=== PATIENT | male | born 1940 | race Caucasian/White ===

== ENCOUNTER 2017-02-28 04:49 | Inpatient (IN) | payer OTHER, MEDICARE ==
[~2017-02-28] VITALS: Ht 185.4 cm; Wt 88.0 kg
[~2017-02-28 04:49] MED LIST: ATORVASTATIN CA40 M1 PO; DILTIAZEM 24HR120 MG PO; ELIQUIS5 M1 PO; MULTAQ400 M1 PO; OMEPRAZOLE40 M1 PO; PROAIR HFA8.5 GM INH; SYMBICORT 16010.2 GM INH
[2017-02-28] MEDS ORDERED: CEPHALEXIN500 M3 PO (08:18)
--- NOTE | 2017-02-28 13:33 | Admission Core Measures ---
Admission Meds I reviewed the following Meds: Current Medications Sig/Skyler Start time Last Medication Dose Stop Time Status Admin Acetaminophen 975 MG ONCE 02/28 0000 AC (Tylenol) 02/28 235 Albuterol Sulfate 2 PUF Q4-6 PRN PRN 02/28 1330 AC (Ventolin) Atorvastatin Calcium 40 MG 1700 03/01 1700 AC (Lipitor) Budesonide/ 2 PUF BID 02/28 2200 AC Formoterol Fumarate (Symbicort) Cefazolin Sodium 2,000 MG ONCE 02/28 0000 NR (Kefzol-Ancef Inj) 02/28 235 Diltiazem HCl 120 MG DAILY 03/01 1000 AC (Cardizem CD) Dronedarone 400 MG BID 02/28 2200 AC (Multaq) Omeprazole 40 MG DAILY AC 03/01 0700 AC (Prilosec) Oxycodone HCl 10 MG ONCE 02/28 0000 AC (Roxicodone) 02/28 235 Acute Coronary Syndrome Inclusion Criteria ACS Diagnosis No Inpatient Core Measures LDL Reminder: If No, please order W/I first 24hr of stay Congestive Heart Failure Inclusion Criteria CHF Diagnosis No Cerebrovascular accident Inclusion Criteria CVA/TIA Diagnosis No Inpatient Core Measures Bedside Swallow Eval Reminder: If BSE failed, place ST order Antithrombotic Reminder: Order Antithrombotic Medication by end of day 2 Antithrombotic Reminder: Document Reason Antithrombotic Not ordered by end of day 2 AFIB/Flutter Reminder: If Present, add to problem list AFIB/Flutter Reminder: Order Anticoag Medication for pts with AFIB/Flutter Atherosclerosis Reminder: If Present, add to problem list LDL Reminder: If No, please order W/I first 24hr of stay PT Order Reminder: If No, please order Venous thromboembolism Inpatient Core Measures VTE Risk Factors: Age > 40, Previous VTE No [facility] VTE prophylaxis d/t No contraindications No VTE Pharm Prophylaxis d/t No contraindications Inclusion Criteria - Per Current guidelines, there needs to be overlap - treatment for the first 5 days of Warfarin therapy. - Parenteral Anticoagulation (IV or SC) needs to be - given along with Warfarin therapy. VTE Diagnosis No VTE Type NONE VTE Confirmed by (Test) NONE Problem List As ranked by this Provider includes Assessment & Plan 1. Unilateral primary osteoarthritis, left hip HOME MEDS Home Med List Albuterol Sulfate (Proair Hfa) 90 MCG HFA.AER.AD 2 PUF INH Q4-6 PRN PRN ASTHMA (Reported) Apixaban (Eliquis) 5 MG TABLET 1 TAB PO BID A FIB (Reported) Atorvastatin Calcium 40 MG TABLET 1 TAB PO DAILY CHOLESTEROL (Reported) Budesonide/Formoterol Fumarate (Symbicort 160-4.5 Mcg Inhaler) 160 MCG-4.5 MCG/ ACTUATION HFA.AER.AD 2 PUF INH BID ASTHMA (Reported) Cephalexin 500 MG CAPSULE 2 CAP PO BID UTI (Reported) Diltiazem HCl (Diltiazem 24HR ER) 120 MG CAP.ER.24H 1 CAP PO DAILY HTN ( Reported) Dronedarone HCl (Multaq) 400 MG TABLET 1 TAB PO BID A FIB (Reported) Omeprazole 40 MG CAPSULE.DR 1 CAP PO DAILY GERD (Reported)
[2017-02-28] MEDS ORDERED: COLACE100 M1 PO (13:36)
[2017-02-28] MEDS ORDERED: ELIQUIS2.5 M1 PO ×2 (13:36→13:53)
[2017-02-28] MEDS ORDERED: MS CONTIN30 M1 PO (13:36)
[2017-02-28] MEDS ORDERED: DILAUDID2 M1 PO (13:36)
[2017-02-28] MEDS ORDERED: MIRALAX17 G1 PO (13:36)
--- NOTE | 2017-02-28 13:42 | RADIOLOGY REPORT ---
EXAMINATION: XR HIP, LEFT CLINICAL INFORMATION: Status post left total hip are placement. COMPARISON: None TECHNIQUE: Two views of the left hip. FINDINGS: Prosthetic components of the left total hip arthroplasty are appropriately aligned. No periprosthetic fracture. Gas from recent surgery is present in the surrounding soft tissues. IMPRESSION: Normal postoperative appearance of the left total hip prosthesis.
--- NOTE | 2017-02-28 13:49 | Patient Discharge Instructions ---
Discharge Instructions General Discharge Information You were seen/treated for: Left hip pain related to unilateral primary osteoarthritis You had these procedures: Left total hip replacment Watch for these problems: Increasing pain despite the use of pain medication Increasing redness, warmth or swelling Drainage of any type from incision Inability to bear weight on operative leg Persistent nausea and vomiting Fever greater than 101.5 degrees Do not soak the wound: Yes No bath, but you may shower: Yes Other wound care: No ointments or lotions of any type on or near incision at any time. No exceptions. Your dressing will be changed by your nurse on the second day after your surgery. Daily dry dressing changes are recommended each day thereafter. Do not soak your wound in a bath at any time until otherwise indicated by your surgeon. You may shower, please dry wound immediately after shower with a clean towel. Special Instructions: Constipation: Pain medication can cause constipation. Dr. Disla has recommended that you take Colace and miralax each day. You may discontinue this medication if you develop loose stool or diarrhea. If you wish to continue this medication, it is available over the counter. If you are unable to move your bowels after several days, if you are unable to pass gas and are developing bloating, nausea, or vomiting as a result, please contact your doctor. Blood thinner: Dr. Disla has recommended that you take eliquis 2.5 mg twice daily as opposed to 5 mg daily. He would like for you to do this for two weeks. After the completion of the second week, you are to resume your usual dose of 5 mg daily. Diet Continue normal diet: Yes Recommended Diet: Heart Healthy Acute Coronary Syndrome Inclusion Criteria At DC or during hospital stay patient has or had the following: ACS DIAGNOSIS No Discharge Core Measures Meds if any: Prescribed or Continued at Discharge Meds if any: NOT Prescribed or Continued at Discharge Congestive Heart Failure Inclusion Criteria At DC or during hospital stay patient has or had the following: CHF DIAGNOSIS No Discharge Core Measures Meds if any: Prescribed or Continued at Discharge Meds if any: NOT Prescribed or Continued at Discharge Cerebrovascular accident Inclusion Criteria At DC or during hospital stay patient has or had the following: CVA/TIA Diagnosis No Discharge Core Measures Meds if any: Prescribed or Continued at Discharge Meds if any: NOT Prescribed or Continued at Discharge Venous thromboembolism Inclusion Criteria VTE Diagnosis No VTE Type NONE VTE Confirmed by (Test) NONE Discharge Core Measures - Per Current guidelines, there needs to be overlap - treatment for the first 5 days of Warfarin therapy. - If discharged on Warfarin prior to 5 days of - overlap therapy, the patient will need to be - assessed for post discharge needs including - *Post discharge parental anticoagulation - *Warfarin and/or parental anticoagulation education - *Follow up date to check INR post discharge At least 5 days overlap therapy as Inpatient No Meds if any: Prescribed or Continued at Discharge Note: Overlap Therapy is Warfarin and Anticoagulant Meds if any: NOT Prescribed or Continued at Discharge
--- NOTE | 2017-02-28 13:51 | Surgical Discharge Summary ---
Visit Information Visit Dates Admission Date: 02/28/17 Discharge Date: 02/28/17 History of Present Illness Chief Complaint: Left hip pain related to unilateral primary osteoarthritis Medical History Isolation History: Standard Surgical History Pertinent Surgical History: non-contributory Review of Systems: See H&P Hospital Course Course Attending Physician: TRES MORA MD Primary Care Physician: RAZ ALBARRAN,[facility] Hospital Course: Patient was admitted to the hospital for an elective total joint replacement. The procedure was tolerated well and patient was transferred to a general surgical floor. Diet was advanced and tolerated, and the patient voided spontaneously. The patient was evaluated and treated by physical therapy. At the time of hospital discharge, the vital signs were stable, neurovascular status was intact, and pain was controlled with the use of oral pain medications. Allergies: Coded Allergies: No Known Allergies (02/22/17) Disposition Summary Disposition Principal Diagnosis: Left hip unilateral primary osteoarthritis Additional Diagnosis: None Discharge Disposition: home health services Discharge Instructions General Discharge Information Code Status: Full Code Patient's Diet: Advance as tolerated Patient's Activity: WBAT Follow-Up Instructions/Appts: Follow up with Dr. Mora in 6 weeks from date of surgery. Please call his office to arrange and/or confirm this appointment. Medications at Discharge Discharge Medications: Stop taking the following medications: Apixaban (Eliquis) 5 MG TABLET ORAL TWICE DAILY Cephalexin (Cephalexin) 500 MG CAPSULE ORAL TWICE DAILY Continue taking these medications: Budesonide/Formoterol Fumarate (Symbicort 160-4.5 Mcg Inhaler) 160 MCG-4.5 MCG/ ACTUATION HFA.AER.AD 2 Puff Inhale through mouth TWICE DAILY Omeprazole (Omeprazole) 40 MG CAPSULE.DR 1 Capsule ORAL DAILY Atorvastatin Calcium (Atorvastatin Calcium) 40 MG TABLET 1 Tablet ORAL DAILY Diltiazem HCl (Diltiazem 24HR ER) 120 MG CAP.ER.24H 1 Capsule ORAL DAILY Dronedarone HCl (Multaq) 400 MG TABLET 1 Tablet ORAL TWICE DAILY Albuterol Sulfate (Proair Hfa) 90 MCG HFA.AER.AD 2 Puff Inhale through mouth EVERY 4-6 HOURS NEEDED as needed for ASTHMA Start taking the following new medications: Apixaban (Eliquis) 2.5 MG TABLET 1 Tablet ORAL TWICE DAILY Qty = 28 No Refills Instructions: RETURN TO DOSING OF 5 MG DAILY IN 2 WEEKS FROM DATE OF SURGERY Docusate Sodium (Colace) 100 MG CAPSULE 1 Capsule ORAL TWICE DAILY Qty = 14 No Refills Instructions: DISCONTINUE USE IF YOU DEVELOP LOOSE STOOL OR DIARRHEA Polyethylene Glycol 3350 (Miralax) 17 GRAM POWD.PACK 1 Packet ORAL DAILY Qty = 7 No Refills Instructions: dissolve in water, DISCONTINUE USE IF YOU DEVELOP LOOSE STOOL OR DIARRHEA Hydromorphone HCl (Dilaudid) 2 MG TABLET 1-2 Tablet ORAL EVERY 4-6 HOURS NEEDED as needed for PAIN Qty = 36 No Refills Morphine Sulfate (Ms Contin) 30 MG TABLET.ER 1 Tablet ORAL TWICE DAILY Qty = 6 No Refills
[2017-02-28 14:55] VITALS: BP 120/80
--- NOTE | 2017-02-28 15:37 | PN- Orthopedic ---
Subjective Subjective: POST-OP NOTE: No complaints. Out of bed to chair. He has already cleared stairs for discharge today. He denies dizziness. No shortness of breath. No chest pains. Tolerating clears. Awaiting food. No nausea. Still due to void prior to discharge home later. Objective Vital Signs and I&Os pacu flowsheet reviewed (vss), due to void this evening Physical Exam: General - alert & oriented x 3. comfortable. no acute distress. out of bed to chair. Lungs - clear bilaterally. no w/r/r. Cardiac - s1s2. reg. Extremities - warm bilaterally. no c/c/e. left hip dressing c/d/i. no drains. no hematoma. nvi. calves soft and nontender b/l. +df/pf b/l. Current Medications: Current Medications Sig/Skyler Start time Last Medication Dose Route Stop Time Status Admin Acetaminophen 1,000 MG Q6 02/28 1800 AC IV 03/01 1201 Acetaminophen 0 .STK-MED ONE 02/28 0927 DC PO Acetaminophen 975 MG ONCE 02/28 0000 DC PO 02/28 2359 Albuterol Sulfate 2 PUF Q4-6 PRN PRN 02/28 1515 AC INH Albuterol Sulfate 2 PUF Q4-6 PRN PRN 02/28 1330 DC INH Apixaban 2.5 MG BID 03/01 1000 AC PO Atorvastatin Calcium 40 MG 1700 03/01 1700 DC PO Atorvastatin Calcium 40 MG 1700 03/01 1700 AC PO Atorvastatin Calcium 40 MG DAILY 03/01 1000 DC PO Budesonide/ 2 PUF BID 02/28 2200 DC Formoterol Fumarate INH Budesonide/ 2 PUF BID 02/28 2200 AC Formoterol Fumarate INH Cefazolin Sodium 2 GM IQ8 02/28 1600 AC N/A 1 UNIT IV 03/01 0029 Cefazolin Sodium 2,000 MG ONCE 02/28 0000 DC IV 02/28 2359 Dextrose/Sodium 1,000 ML .[id number] 02/28 1515 AC Chloride IV Diltiazem HCl 120 MG DAILY 03/01 1000 DC PO Diltiazem HCl 120 MG DAILY 03/01 1000 AC PO Docusate Sodium 100 MG BID 02/28 2200 AC PO Dronedarone 400 MG BID 02/28 2200 DC PO Dronedarone 400 MG BID 02/28 2200 AC PO Hydromorphone HCl 2 MG Q4P PRN 02/28 1515 AC PO Hydromorphone HCl 4 MG Q4P PRN 02/28 1515 AC PO Morphine Sulfate 2 MG Q2P PRN 02/28 1515 AC IV Omeprazole 40 MG DAILY AC 03/01 0700 DC PO Omeprazole 40 MG DAILY AC 03/01 0700 AC PO Ondansetron HCl 4 MG Q6P PRN 02/28 1515 AC IV Oxycodone HCl 0 .STK-MED ONE 02/28 0927 DC PO Oxycodone HCl 10 MG ONCE 02/28 0000 DC PO 02/28 2359 Polyethylene Glycol 17 GM DAILY 03/01 1000 AC PO Promethazine HCl 12.5 MG Q6P PRN 02/28 1515 AC IV 03/07 1329 Assessment/Plan Assessment/Plan This 76 year old male with hx peripheral neuropathy, gerd, asthma/copd, htn, afib anticoagulated on eliquis pre-op, currently POD#0 left total hip replacement for unilateral primary osteoarthritis tolerating diet pain controlled noel-operative ancef x 2 doses eliquis 2.5 bid x 2 weeks, then to resume 5 mg bid (baseline a/c for afib) cleared by PT for home today home meds re-ordered due to void prior to discharge home will d/w Core Measures/Miscellaneous Venous Thromboembolism VTE Risk Factors: Age > 40, Surgery VTE Contraindications: No Contraindications VTE Diagnosis: No VTE Type: NONE VTE Confirmed by (Test): NONE Beta [place] Is Beta Savanna a Home Med? No Antibiotics Is Patient on Antibiotics? Yes If Yes: prophylaxis
--- NOTE | 2017-02-28 15:54 | NUR ---
PT ARRIVED TO FLOOR FROM PACU VIA STRETCHER AT 1455. A&OX3, DENIES PAIN/DISCOMFORT 0/10 AT THIS TIME. VSS. ORTHOSTATICS: LYING 120/80 PULSE 60, SITTING 126/80 PULSE 64, STANDING 130/80 PULSE 74. DENIES DIZZINESS, + CMS. AMBULATING ASSISTX1 WITH PHYSICAL THERAPY AT THIS TIME. ORIENTED TO ROOM AND CALL JOY. SAFETY MAINTAINED, NEEDS IN REACH.
--- NOTE | 2017-02-28 16:03 | Operative Report ---
Operative/Inv Procedure Report Surgery Date: 02/28/17 Name of Procedure: Left total hip replacement Pre-Operative Diagnosis: Primary left hip DJD Post-Operative Diagnosis: Same Estimated Blood Loss: 250 Surgeon/Route Cdl Driver: MORGAN ALBARRAN,TRES Chawla Anesthesia: block Operative/Procedure Note Note: Description of Procedure: The patient was taken to the operating room and positively identified. After induction of spinal anesthesia and administration of appropriate pre-operative antibiotics, the patient was positioned supine on the operating room table and all bony prominences were well padded. After performing a surgical timeout, the left lower extremity was prepped and draped in the usual sterile fashion. A direct anterior approach was made to the left hip. The incision was carried sharply through superficial soft tissues to the level of the fascia. Meticulous hemostasis was maintained with Bovie electocautery. The fascia over the tensor fascia andérs muscle was opened sharply and the interval between the TFL and the sartorius was entered bluntly taking care to stay lateral to the lateral femoral cutaneous nerve. Retractors were placed around the femoral neck and the pericapsular fat was identified. The ascending branches of the lateral femoral circumflex vessels were identified and carefully coagulated. The pericapsular fat and anterior capsule were then resected. A napkin ring osteotomy was performed and the femoral head was removed without difficulty. Attention was then turned to the acetabulum. After appropriate placement of retractors, the acetabulum was exposed. Soft tissue was cleaned from the acetabular margin and notch. Overhanging osteophytes were removed and the teardrop was exposed. The acetabulum was then sequentially reamed to accept a 58 mm Walpole Tritanium hemispherical solid back shell. This was impacted into place in the appropriate position and fitted with a 36 mm Trident X3 zero degree polyethylene insert. Attention was then turned to the femur. After performing the appropriate ligament releases, the proximal femur was exposed. It was then sequentially broached to accept a size 7 Walpole accolade 2 stem. This was trialed for leg length and stability. The trial component was removed and the final component was impacted into place. The trunnion was carefully cleaned and fit with a 36 mm, +0 Biolox delta ceramic femoral head. The hip was reduced and put through a full range of motion and found to be stable. The articular space was then irrigated with sterile saline. The periarticular soft tissues were infilitrated with Marcaine. The fascial layer was closed with interrupted #1 vicryl suture and the skin was re-approximated with interrupted 2 -0 vicryl. The skin was closed with a running 3-0 V-Lock suture. Steri-strips and a sterile dressing were applied. The patient was awakened and taken to the recovery room in satisfactory condition.
[2017-02-28 17:18] VITALS: BP 122/62
== END 2017-02-28 19:20 | disposition home health service (06) | DRG 470 ==
LOC: SDA 04:49 → ENRESERV 13:54 → ENTRNSPT 14:35 → EDTRNSPTSTS 14:43 → EDTRNSPT 14:43 → 2NA 14:54 → CMPTRNSPT 15:09 → 2NA 19:20
PROVIDERS: ADMIT Orthopaedic Surgery
PROC: 0SRB0JZ Replacement of Left Hip Joint with Synthetic Substitute, Open Approach (ICD-10-PCS; principal; 2017-02-28)
DX: M16.12 Unilateral primary osteoarthritis, left hip (principal); E11.22 Type 2 diabetes mellitus with diabetic chronic kidney disease; I48.91 Unspecified atrial fibrillation; I12.9 Hypertensive chronic kidney disease with stage 1 through stage 4 chronic kidney disease, or unspecified chronic kidney disease; N18.2 Chronic kidney disease, stage 2 (mild); Z79.4 Long term (current) use of insulin; J44.9 Chronic obstructive pulmonary disease, unspecified; K21.9 Gastro-esophageal reflux disease without esophagitis; K22.2 Esophageal obstruction; Z90.5 Acquired absence of kidney; Z79.01 Long term (current) use of anticoagulants
CPT/HCPCS: 2NAP; 73502-LT; 97110-GO; 97116-GO; 97161-GP; 97530-GO; J0131; J0690; J1100; J2405; J2550; J3490; J7042